=== PATIENT | male | born 1990 | race Caucasian/White ===

== ENCOUNTER 2019-01-31 22:26 | Emergency (ER) | payer SELFPAY ==
[~2019-01-31] VITALS: Ht 170.2 cm; Wt 97.1 kg
[2019-01-31 22:30] VITALS: Ht 170.2 cm; Wt 97.1 kg
[2019-01-31 23:25] VITALS: BP 133/70
== END 2019-01-31 23:25 | disposition home or self-care (01) ==
LOC: ED 22:26
DX: K61.1 Rectal abscess (principal)